=== PATIENT | female | born 1995 | race Caucasian/White ===

== ENCOUNTER 2019-12-05 13:58 | Emergency (ER) | payer OTHER ==
[~2019-12-05] VITALS: Ht 160 cm; Wt 50.8 kg
[2019-12-05] MEDS ORDERED: LIDOCAINE HCL 2% JELLY 5 ML TUBE ONE ×2 (14:26→15:14)
[2019-12-05 15:18] VITALS: BP 108/75
== END 2019-12-05 15:25 | disposition home or self-care (01) ==
LOC: EDBD → ER 13:58
DX: K62.5 Hemorrhage of anus and rectum (principal); K60.0 Acute anal fissure
CPT/HCPCS: 99283; J2001

== ENCOUNTER 2019-12-18 21:51 | Emergency (ER) | payer OTHER ==
[~2019-12-18] VITALS: Ht 160 cm; Wt 50.8 kg
--- OUTSIDE RECORDS SUMMARY | 2019-12-18 21:53 | XMS REPORT ---
Author Author [facility] Address Unknown Phone Unavailable Care Team Providers Care Client Services Vice President Name Role Phone NO, PCP PP Unavailable Payers Payer Name Policy Type Policy Number Effective Date Expiration Date [employer] o [id number] 2016 00:00:00 Problems This patient has no known problems. Allergies, Adverse Reactions, Alerts This patient has no known allergies or adverse reactions. Medications This patient has no known medications. Encounters Start Date/Time End Date/Time Encounter Type Admission Type Attending Clinicians Care Facility Care Department Encounter ID 2019-12-05 13:58:00 2019-12-05 15:25:00 Departed Emergency Room [facility] [id number]
== END 2019-12-18 22:25 | disposition home or self-care (01) ==
LOC: ER 21:51 → EDBD 21:51 → ER 22:25
DX: R07.0 Pain in throat (principal); F17.290 Nicotine dependence, other tobacco product, uncomplicated
CPT/HCPCS: 83518; 87070; 99282